=== PATIENT | male | born 1945 | race Caucasian/White ===

== ENCOUNTER 2022-06-08 14:18 | Outpatient (CLI) | payer MEDICARE, BC, SELFPAY ==
[2022-06-09 00:16] LABS: Free T4 Free Thyroxine* 1.43 ng/dL (0.70-1.85)
== END 2022-06-08 14:19 | disposition home or self-care (01) ==
PROVIDERS: PCP Family Medicine; Visit Provider Family Medicine
DX: E03.9 Hypothyroidism, unspecified (principal); E78.2 Mixed hyperlipidemia; E11.9 Type 2 diabetes mellitus without complications; N18.2 Chronic kidney disease, stage 2 (mild); Z12.5 Encounter for screening for malignant neoplasm of prostate
CPT/HCPCS: 80048; 80061; 83520; 84153; 84439; 84443; 84460

== ENCOUNTER 2022-10-13 11:42 | Outpatient (CLI) | payer MEDICARE, BC, SELFPAY ==
[2022-10-13 15:37] LABS: Basophils Absolute Auto 0.03 K/uL (0.00-0.30); Basophils Percent Auto 0.4 % (0.0-3.0); Eosinophils Absolute Auto 0.12 K/uL (0.00-0.50); Eosinophils Percent Auto 1.7 % (0.0-7.0); Hematocrit 36.4 % (37.0-53.0); Hemoglobin* 11.8 gm/dL (13.5-17.5); Immature Granulocytes Abs Auto 0.02 K/uL (0.00-0.30); Immature Granulocytes Pct Auto 0.3 %; Lymphocytes Percent Auto 22.8 % (20-44); Mean Corpuscular HGB Conc 32 gm/dL (32-36); Mean Corpuscular Hemoglobin 30 pg (26-34); Mean Corpuscular Volume 91 fL (80-100); Neutrophils Absolute Auto 4.77 K/uL (1.7-7.0); Neutrophils Percent Auto 67.8 % (42.0-72.0); Platelet Count* 225 K/uL (140-440); RDW Coefficient of Variation % 13.4 % (11.5-15.5); White Blood Count* 7.03 K/uL (4.50-11.00)
[2022-10-13 15:54] LABS: Slide Review Reflex No
[2022-10-13 17:46] LABS: Free T4 Free Thyroxine* 1.37 ng/dL (0.70-1.85)
== END 2022-10-13 11:43 | disposition home or self-care (01) ==
PROVIDERS: PCP Family Medicine; Visit Provider Family Medicine
DX: D50.9 Iron deficiency anemia, unspecified (principal); E03.9 Hypothyroidism, unspecified
CPT/HCPCS: 84439; 84443; 85025

== ENCOUNTER 2023-01-08 09:14 | Outpatient (CLI) | payer MEDICARE, BC, SELFPAY | END 2023-01-08 09:15 | disposition home or self-care (01) | LOC: NFLDREF 01-11 05:53 | PROVIDERS: PCP Family Medicine; Referring Provider Family Medicine; Visit Provider Family Medicine | DX: E03.9 Hypothyroidism, unspecified (principal) | CPT/HCPCS: 84439; 84443 ==

== ENCOUNTER 2023-08-16 09:30 | Outpatient (CLI) | payer MEDICARE, BC, SELFPAY ==
--- OUTSIDE RECORDS SUMMARY | 2023-08-16 09:32 | XMS_ITS | Clinical Summary ---
Author Organization [facility] [facility] [employer] Address [place], [place] [address] Care Team Providers Care Drag Out Man Name Role Phone Alba Alberto NP Primary Care Provider Allergies Active Allergy Reactions Criticality Noted Date Comments Amlodipine Rash 04/16/2008 Chlorthalidone Rash 04/28/2010 Hydralazine Itching 04/07/2010 Medications Medication Sig Dispensed Refills Start Date End Date Status simvastatin (ZOCOR) 80 mg tabletIndications:Pure hypercholesterolemia Take 1 tablet by mouth once daily with evening meal. 90 tablet 3 1 Active NIFEdipine (PROCARDIA XL) 60 mg Extended-Release tablet Take 60 mg by mouth once daily before a meal. Active losartan-hydrochlorothiaz sammi (HYZAAR) 100-25 mg tablet Take 1 Tablet by mouth once daily. Active Terazosin HCl 10 mg capsule Take 10 mg by mouth once daily with evening meal. Active glimepiride (AMARYL) 4 mg tablet Take 8 mg by mouth once daily with a meal. Active cloNIDine HCL (CATAPRES) 0.3 mg tablet Take 0.3 mg by mouth 2 times daily. Active labetaloL (TRANDATE) 300 mg tablet Take 600 mg by mouth 2 times daily. Active metFORMIN (GLUCOPHAGE XR) 500 mg Extended-Release tablet Take 2,000 mg by mouth once daily with a meal. Active Lantus Solostar U-100 Insulin 100 unit/mL (3 mL) pen Inject 22 units subcutaneous before bedtime. Product desired: LANTUS SOLOSTAR Active insulin aspart, U-100, (NOVOLOG FLEXPEN) 100 unit/mL (3 mL) pen Inject 14 units subcutaneous once daily with lunch. Active semaglutide (Ozempic) 1 mg/dose (2 mg/1.5 mL) pen Inject 1 mg subcutaneous once weekly. Active cetirizine (ZYRTEC) 10 mg tablet Take 10 mg by mouth 2 times daily. Active ferrous sulfate, 65 mg elemental, tablet Take 325 mg by mouth once daily. Active famotidine (PEPCID) 20 mg tabletIndications:Gastroe sophageal reflux disease, unspecified whether esophagitis present Take 1 Tablet (20 mg) by mouth two times daily. 30 Tablet 2 Active sucralfate (CARAFATE) 1 gram tabletIndications:Gastroe sophageal reflux disease, unspecified whether esophagitis present Take 1 Tablet (1 g) by mouth four times daily before meals and at bedtime. 60 Tablet 2 Active pantoprazole (PROTONIX) 20 mg tabletIndications:Gastroe sophageal reflux disease, unspecified whether esophagitis present Take 1 Tablet (20 mg) by mouth once daily. 15 Tablet 2 Active Active Problems Problem Noted Date Diagnosed Date Lactic acidosis 06/30/2021 Acute cystitis without hematuria 06/30/2021 FAISAL (obstructive sleep apnea) 06/30/2021 Other specified anemias 06/20/2021 Thyroid function study abnormality 06/20/2021 Personal history of other malignant neoplasm of skin 08/04/2018 Type 2 diabetes mellitus 03/21/2015 Melanoma 08/02/2013 Melanoma 04/10/2013 Hypertensive kidney disease, stage II 01/07/2012 Hyperlipidemia 01/07/2012 Personal history of colonic polyps 04/02/2010 Overview: Colonoscopy 03/2010 polyps repeat in 5 years Routine general medical exam ination at a health care facility 03/10/2010 Abnormal stress test 11/27/2009 Overview: Abnormal nucl stress test 03/2008; then normal Angiogram at [facility] 11/27/2009 Skin ulcer 11/27/2009 Overview: Below naso labial fold left 11/27/2009 Impaired fasting glucose 04/16/2008 Morbid obesity 01/03/2008 Unspecified sleep apnea 06/12/2006 Unspecified essential hypertension 06/12/2006 Other malaise and fatigue 06/12/2006 Displacement of intervertebr al disc, site unspecified, without myelopathy 06/12/2006 Pure hypercholesterolemia 06/12/2006 Melanoma of back Immunizations Name Administration Dates Next Due Influenza, IIV3 (Age >=3 years) 11/27/2009,12/17,02/11/2007,01/22/2005 Td (Age >=7 Years) 02/27/2003 Zoster (Zostavax-ZVL, live) 04/07/2010 Family History Medical History Relation Name Comments Heart Disease Brother Aidan Heart Disease Father Hollis Diabetes Mother Caryn took pills, not insulin Hypertension Mother Caryn Heart Disease Other Jules [place] nephew CAD s/ p PCI age 53 Cancer Sister 1 Katherine ALL OVER Anesthesia Problem No Family History Blood Disease No Family History Relation Name Status Comments Brother Aidan (Age 59) CAD Father Hollis (Age 66) CAD Mother Caryn (Age 83) HTN, DM Other Jules [place]ton Sister 1 Katherine (Age 60) Sister 2 Trinity Alive Sister 3 Tiki Alive Sister 4 Migdalia Alive Social History Tobacco Use Types Packs/Day Years Used Date Smoking Tobacco: Former Smokeless Tobacco: Never Alcohol Use Standard Drinks/Week Comments No 0 (1 standard drink = 0.6 oz pur e alcohol) Social Connections Answer Date Recorded Frequency of Communication with Friends and Fami ly Not on file 05/18/2022 Sex and Gender Information Value Date Recorded Sex Assigned at Not on file Gender Identity Not on file Sexual Orientation Not on file Obstetrics History Last Filed Vital Signs Vital Sign Reading Time Taken Comments Blood Pressure 135/78 10/09/2021 9:30 AM CDT Pulse 71 10/09/2021 10:30 AM CDT Temperature 36.6 ??C (97.9 ??F) 10/09/2021 9:27 AM CD T Respiratory Rate 16 10/09/2021 9:27 AM CDT Oxygen Saturation 96% 10/09/2021 10:30 AM CDT Inhaled Oxygen Concentration - - Weight 146 kg (321 lb 14.4 oz) 10/09/2021 9:27 A M CDT Height 177.8 cm (5' 10) 10/09/2021 9:27 AM CDT Body Mass Index 46.19 10/09/2021 9:27 AM CDT Plan of Treatment Health Maintenance Due Date Last Done Comments Tdap 1956 Depression screening for age 12+ 1958 Hepatitis C screening for ag e 18-79 1964 Zoster (shingles) series for age 50+ (2 of 3) 06/02/2010 04/07/2010 Medicare Wellness for age 65+ 11/17/2011 Pneumococcal series for age 65+ (1 of 1 - PCV) 11/17/2011 Tetanus booster 02/27/2013 02/27/2003 BMI (ht and wt on same day) for age 18+ 07/08/2018 07/08/2017 COVID-19 vaccine series ( season) 2022 07/03/2021, 11/07/2020, 04/20/2020, Additional history exists Influenza for age 65+ 10/10/2023 11/27/2009 , 12/17/2008, 02/11/2007, Additional history exists Medical Devices Implanted Type Area Make Ready Mechanic Device Identifier Shelf Expiration Date Model / Serial / Lot Mesh Ventral 1.7in Ventralex St W/Strap - [id number] Implanted:Qty: 1 on 03/04/2016 by Vic Oliveira MD at [facility] N/A: Abdomen [employer] 12/05/2017 [id number] / / [id number] Advance Directives Documents on File Type Date Recorded Patient Certified Driver Examiner Expl anation Healthcare Directive 06/28/2021 022 * Full Code (Latest Code Status on File) Date Activated Date Inactivated Comments 07/15/2021 11:02 AM 07/15/2021 4:48 PM Question Answer Comments Code Status Discussion: Reviewed Preferences * Full Code Date Activated Date Inactivated Comments 06/27/2021 6:10 PM 06/30/2021 5:20 PM Question Answer Comments Code Status Discussion: Reviewed Preferences * Full Code Date Activated Date Inactivated Comments 06/20/2021 5:34 PM 06/20/2021 9:50 PM Question Answer Comments Code Status Discussion: Unable to Assess Preferences, Provider to review later * Full Code Date Activated Date Inactivated Comments 03/04/2016 12:53 PM 03/04/2016 5:46 PM * Full Code Date Activated Date Inactivated Comments 03/04/2016 9:39 AM 03/04/2016 12:53 PM Care Teams Drag Out Man Relationship Specialty Start Date End Date Alba Alberto NP PCP - General Nurse Practitioner 07/08/19
--- OUTSIDE RECORDS SUMMARY | 2023-08-16 09:32 | XMS_ITS | Clinical Summary ---
Author Organization [facility] Address [address] [place] [address] Care Team Providers Care Air Analyst Name Role Phone Elsewhere, Pcp Primary Care Provider Unavailabl e Source Comments Patient records contain information from all sites at [facility]. For routine questions regarding patient records, call [phone] during business hours, M-F 8:00 AM - 5:00 PM Central Time. Record requests for emergency care only can be directed to [phone] at any time.[facility] Allergies Active Allergy Reactions Criticality Noted Date Comments Amlodipine Rash High 04/16/2008 Chlorthalidone Rash 04/28/2010 Hydralazine Itching 04/07/2010 Medications Medication Sig Dispensed Refills Start Date End Date Status cetirizine (ZyrTEC) 10 mg tablet Take 1 tablet by mouth 2 (two) times a day. 07/12/2013 Active blood-glucose meter miscIndications:Nicole betes Mellitus Type 2 Hyperglycemia (HCC) Test as directed for diabetes control. 1 each 06/16/2018 Active UNABLE TO FIND Walzyr 10 mg AM and PM patient reported Active cloNIDine (CATAPRES) 0.3 mg tabletIndications:H ypertension Essential Primary Take 1 tablet (0.3 mg total) by mouth 2 (two) times a day. 180 tablet 3 06/17/2021 Active ferrous sulfate 325 mg (65 mg iron) tablet Take 325 mg by mouth daily. Active erythromycin (ROMYCIN) 5 mg/gram (0.5 %) ophthalmic ointment 07/17/2021 Active labetaloL (NORMODYNE) 300 mg tabletIndications:H ypertension Essential Primary TAKE 2 TABLETS EVERY 12 HOURS 360 tablet 3 08/20/2021 Active Lantus Solostar U-100 Insulin 100 unit/mL (3 mL) injectionIndication s:Fdc Use Of Insulin Active (HCC),Diabetes Mellitus Type 2 Hyperglycemia (HCC) INJECT 22 UNITS SUBCUTANEOUSLY AT BEDTIME DIRECTED 21 mL 3 10/09/2021 Active simvastatin (ZOCOR) 80 mg tabletIndications:H yperlipidemia TAKE 1 TABLET AT BEDTIME 90 tablet 3 11/24/2021 Active losartan-hydroCHLOR Othiazide (HYZAAR) 100-25 mg per tabletIndications:H ypertension Essential Primary TAKE 1 TABLET EVERY DAY 90 tablet 3 11/24/2021 Active insulin aspart U-100 (NovoLOG Flexpen U-100 Insulin) 100 unit/mL (3 mL) injectionIndication s:Diabetes Mellitus Type 2 Hyperglycemia (HCC),Guide Travel Use Of Insulin Active ([facility]) Take 14 units before lunch and 5 units before dinner daily. 15 mL 1 12/08/2021 Active FreeStyle Flaca 2 Sensor kitIndications:Diab etes Mellitus Type 2 Hyperglycemia (HCC) CHANGE SENSOR EVERY 14 DAYS 1 each 3 12/13/2021 Active flash glucose scanning reader (FreeStyle Flaca 2 [place]) miscIndications:Nicole betes Mellitus Type 2 Hyperglycemia (HCC) 1 kit daily. 1 each 12/23/2021 Active Droplet Pen Needle 31 gauge x 5/16 needleIndications:L corbin Term Use Of Insulin Active (HCC),Diabetes Mellitus Type 2 Hyperglycemia (HCC) USE TWICE DAILY 200 each 11 01/06/2022 Active terazosin (HYTRIN) 10 mg capsuleIndications: Hypertension Essential Primary Take 1 capsule (10 mg total) by mouth at bedtime. 90 capsule 3 03/04/2022 Active NIFEdipine XL (PROCARDIA XL) 60 mg 24 hr tabletIndications:H ypertension Essential Primary Take 1 tablet (60 mg total) by mouth daily. 90 tablet 3 03/05/2022 Active metFORMIN XR (GLUCOPHAGE-XR) 500 mg 24 hr tabletIndications:D iabetes Mellitus Type 2 Hyperglycemia (HCC) Take 4 tablets (2,000 mg total) by mouth daily with breakfast. 360 tablet 3 03/05/2022 Active glimepiride (AMARYL) 4 mg tabletIndications:D iabetes Mellitus Type 2 Hyperglycemia (HCC) Take 2 tablets (8 mg total) by mouth daily with breakfast. 180 tablet 3 03/05/2022 Active levothyroxine (SYNTHROID, LEVOTHROID) 100 mcg tablet Take 1 tablet (100 mcg total) by mouth daily. 90 tablet 3 03/09/2022 Active semaglutide (Ozempic) 1 mg/dose (4 mg/3 mL) injectionIndication s:Diabetes Mellitus Type 2 Hyperglycemia (HCC) Inject 1 mg under the skin every 7 (seven) days. 3 mL 3 05/19/2022 Active Additional Information Patient not taking.Reported on 03/02/2023 triamcinolone (KENALOG) 0.1 % cream Apply sparingly to rash on leg twice daily for 2 weeks, stop for 1 week, then resume if needed 60 g 12/17/2022 Active mometasone (ELOCON) 0.1 % ointment Apply sparingly to rash on legs once daily for 2 weeks, stop for 1 week, then resume for 2 weeks and stop. 45 g 03/02/2023 Active Additional Information Patient not taking.Reported on 06/14/2023 spironolactone (ALDACTONE) 50 mg tablet Take 50 mg by mouth every morning. 04/11/2023 Active Hospital, Clinic, or Other Facility Administered Medication Ordered Dose Route Frequency Start Date End Date Status lidocaine-EPINEPHrine 1%-1:200,000 injection 2-50 mL (XYLOCAINE W/EPI)Indications:Nevus Atypical 2 - 50 mL Ifil As needed 04/12/2020 Active lidocaine-EPINEPHrine 1%-1:200,000 injection 2-50 mL (XYLOCAINE W/EPI)Indications:Malignant Neoplasm Of Nose Basal Cell 2 - 50 mL inj As needed 03/09/2023 Active AVFhcpxxgxa-arhchwtda-WBZIMBM rine 0.25%-1%-1:200,000 injection 2-25 mLIndications:Malignant Neoplasm Of Nose Basal Cell 2 - 25 mL inj As needed 03/09/2023 Active lidocaine-sodium bicarbonate (buffered) 0.9%-8.4% injection 0-10 mL 0 - 10 mL Ifil Once 03/09/2023 Active Active Problems Problem Noted Date Diagnosed Date Hypothyroidism 12/08/2021 Abnormal Thyroid Function Test 06/20/2021 Fdc Use Of Insulin Active 03/25/2020 Morbid Obesity Body Mass Index 45.0-49.9 Adult 0 03/25/2020 Cancer Skin Squamous Cell Personal History 08/04 Polyp Colon Adenomatous Personal History 019 Apnea Sleep Obstructive 04/28/2017 Overview: Uses CPAP. Allergy Seasonal 02/24/2017 Diabetes Mellitus Type 2 Hyperglycemia 6 Keratosis Actinic 08/22/2014 Hypertension And Chronic Kidney Disease Stage 2 01/07/2012 Hyperlipidemia 01/07/2012 Resolved Problems Problem Noted Date Diagnosed Date Resolved Date Other Specified Anemias 06/20/2021 06/0 02/2021 Polyp Colon Adenomatous 05/06/201507/10 Squamous Cell Carcinoma In Situ 01/03/2014 08/04/2018 Melanoma Trunk 05/06/2012 06/16/2018 Overview: Malignant Melanoma of Skin of Trunk, Except Scrotum back Abnormal Stress Test 11/27/2009 019 Overview: Overview: Abnormal nucl stress test 03/2008; then normal Angiogram at [facility] 11/27/2009 Impaired Fasting Glucose 04/16/2008 Encounters Date Type Department Care Team Description 06/14/2023 10:00 AM CDT Office Visit Department of Dermatology in [address] [phone] Ravin Staton M.D. Nevi Multiple (Primary Dx); Keratosis Seborrheic; Melanoma Personal History; Stasis Dermatitis Lower Extremity Bilateral; Keratosis Actinic Discharge Disposition: Home or Self Care from Last 3 Months Immunizations Name Administration Dates Next Due HZV (ZOSTAVAX) 04/07/2010 Influenza TIV (IM) 12/17/2008,02/11/2007 Influenza high dose QV(65 ye ars or older) (PF) 12/08/2021,12/23/2020,12/22/2019 Influenza, Seasonal, Injectable 12/10/19 12,11/27/2009,12/17/2008,2007,01/22/2005 Influenza, Unspecified 10/30/2015,2014,12/11/2013,2012,12/10/2011 PCV13 12/05/2014 PPSV23 12/10/2011 RZV (SHINGRIX) 07/03/2021(Deferred: Patient Ref used) SARS-COV-2 (COVID-19) - PFIZ ER (Discontinued)(12 years or older) 04/20/2020,03/30/2020 SARS-COV-2 (COVID-19) - PFIZ ER BIVALENT TS(Discontinued)(12 YEARS OR OLDER) 12/08/2021 SARS-COV-2 (COVID-19) - PFIZ ER TS(Discontinued)(12 years or older) 07/03/2021 Td (Adult), adsorbed 02/27/2003 Tdap 06/16/2018 influenza high dose (65 year s or older) (PF) 12/15/2018,12/08/2017,01/04/2017,2015,12/05/2014 Family History Medical History Relation Name Comments Coronary artery disease Brother Aidan Mead age 59 Obesity Brother Aidan Mead at age 59 Coronary artery disease Father Hollis Mead age 67 Heart failure Father Hollis Mead Peripheral vascular disease Father Hollis Mead Dementia Mother Caryn Mead age 78 Lung cancer Sister Katherine Lawton age 50--and her son of lung cancer also Ovarian cancer Sister Katherine Lawton 50 Relation Name Status Comments Brother Aidan Mead Father Hollis Mead Mother Caryn Mead Sister Katherine Lawton Social History Tobacco Use Types Packs/Day Years Used Date Smoking Tobacco: Former Cigars Smokeless Tobacco: Never Tobacco Cessation:Counseling Given: Not Answered Comments:SMOKE CIGARS DAILY NOW-- Past usage when i was in my 20's (1967++) quit approx. 10+ years go. Alcohol Use Standard Drinks/Week Comments No 0 (1 standard drink = 0.6 oz pur e alcohol) [facility] Utilities Answer Date Recorded In the past 12 months has e electric, gas, oil, or water company threatened to shut off services in your home? No 04/19/2023 Humiliation, Afraid, Rape, and Kick questionnair e Answer Date Recorded Within the last year, have y ou been afraid of your partner or ex-partner? No 03/02/2022 Within the last year, have y ou been humiliated or emotionally abused in other ways by your partner or ex-partner? No Within the last year, have y ou been kicked, hit, slapped, or otherwise physically hurt by your partner or ex-partner? No 03/02/2022 Within the last year, have y ou been raped or forced to have any kind of sexual activity by your partner or ex-partner? No 03/02/2022 Social Connection and Isolation Panel [NHANES] A nswer Date Recorded In a typical week, how many times do you talk on the phone with family, friends, or neighbors? Twice a week 03/02/2022 How often do you get together with friends or re latives? Once a week 03/02/2022 How often do you attend lutheran or yazidism serv ices? Never 03/02/2022 Do you belong to any clubs o r organizations such as lutheran groups, unions, fraternal or athletic groups, or school groups? No 03/02/2022 How often do you attend meet ings of the clubs or organizations you belong to? Never 03/02/2022 Are you , , di vorced, , never , or living with a partner? 03/02/2022 AUDIT-C Answer Date Recorded Q1: How often do you have a drink containing alc ohol? Monthly or less 03/02/2022 Q2: How many drinks containi ng alcohol do you have on a typical day when you are drinking? 1 or 2 03/02/2022 Q3: How often do you have si x or more drinks on one occasion? Never 03/02/2022 Overall Financial Resource Strain (CARDIA) Answe r Date Recorded How hard is it for you to pa y for the very basics like food, housing, medical care, and heating? Not hard at all 03/02/2022 PHQ-2 Answer Date Recorded PHQ-2 Score 4 03/02/2022 [facility] Occupational Stress Questionnaire Answer Date Recorded Do you feel stress - tense, restless, nervous, or anxious, or unable to sleep at night because your mind is troubled all the time - these days? Not at all 03/02/2022 Exercise Vital Sign Answer Date Recorde d On average, how many days pe r week do you engage in moderate to strenuous exercise (like a brisk walk)? 0 days 04/19/2023 On average, how many minutes do you engage in exercise at this level? 0 min 04/19/2023 Hunger Vital Sign Answer Date Recorded Within the past 12 months, y ou worried that your food would run out before you got the money to buy more. Never true 04/19/19 Within the past 12 months, t he food you bought just didn't last and you didn't have money to get more. Never true 04/19/2023 PRAPARE - Transportation Answer Date Re corded In the past 12 months, has l ack of transportation kept you from medical appointments or from getting medications? No 04/08 In the past 12 months, has l ack of transportation kept you from meetings, work, or from getting things needed for daily living? No 04/19/2023 Depression Answer Date Recor ded PHQ-9 Total Score (max 27) 13 03/02 Nutrition Answer Date Recorded On average, how many serving s of fruits and vegetables do you eat per day (serving size is equal to 1 cup or approximately the size of a tennis ball)? 0-2 04/19/2023 Dental Answer Date Recorded Dental: Regular Dentist Yes 03/02/19 Employment Answer Date Recorded Employment status Retired 04/19/2023 Housing Stability Answer Date Recorded What is your living situation today? I have a [facility] place to live 04/19/2023 Education Answer Date Recorded What is the highest level of school you have completed or the highest degree you have received? 10th grade 08/25/2018 Sex and Gender Information Value Date Recorded Sex Assigned at Male 04/26/2017 2:48 PM CDT Gender Identity Male 04/26/2017 2:48 PM CDT Sexual Orientation Straight 04/26/2017 2: 48 PM CDT Last Filed Vital Signs Vital Sign Reading Time Taken Comments Blood Pressure 109/66 03/09/2023 7:38 AM ASTRONOMY DEPARTMENT CHAIR Pulse 63 03/09/2023 7:38 AM ASTRONOMY DEPARTMENT CHAIR Temperature 36.1 ??C (96.9 ??F) 03/05/2022 9:07 AM CS T Respiratory Rate 18 03/05/2022 9:07 AM ASTRONOMY DEPARTMENT CHAIR Oxygen Saturation 96% 06/17/2021 7:44 AM CDT Inhaled Oxygen Concentration - - Weight 143 kg (315 lb 12.9 oz) 03/05/2022 9:07 A M ASTRONOMY DEPARTMENT CHAIR Height 177 cm (5' 9.69) 03/05/2022 9:07 AM ASTRONOMY DEPARTMENT CHAIR Body Mass Index 45.72 03/05/2022 9:07 AM ASTRONOMY DEPARTMENT CHAIR Plan of Treatment Upcoming Encounters Date Type Department Care Team (Late st Contact Info) Description 12/14/2023 1:30 PM ASTRONOMY DEPARTMENT CHAIR Office Visit Department of Dermatology in [address] [phone] Ravin Staton M.D. [address] [place] [address] Discharge Disposition: Home or Self Care Health Maintenance Due Date Last Done Comments Hepatitis C Screening 1945 Hepatitis B Vaccines (1 of 3 - Risk 3-dose series) 2006 Dilated Eye Exam 08/05/2019 08/04/2018 (Per formed elsewhere), 07/23/2017 Diabetic Office Visit with F oot Exam 05/01/2022 05/01/2021, 03/25/2020, 06/16/2018 Hemoglobin A1C 06/03/2022 03/05/2022, 11/09, 10/23/2021, Additional history exists Creatinine Level (Kidney Fun ction Test) 10/09/2022 10/09/2021, 07/23/2021, 07/09/2021, Additional history exists Potassium Level 10/09/2022 10/09/2021, 07/09, 07/09/2021, Additional history exists Sodium Level 10/09/2022 10/09/2021, 07/09, 07/09/2021, Additional history exists Depression Screening (Annual PHQ-2) 02/08/2023 Fall Risk Screen (Annual) 02/08/2023 Office Visit for Blood Press ure Check / Re-check 03/05/2023 03/05/2022 Thyroid Stimulating Hormone (TSH) test for thyroid function 03/05/2023 03/05/2022, 12/04/2021, 10/23/2021, Additional history exists Urine Albumin 03/05/2023 03/05/2022, 12/09, 12/22/2019, Additional history exists COVID-19 Vaccine ( - 2022-2 4 season) 2023 02/03/2023, 12/08/2021, 07/03/2021, Additional history exists Influenza Vaccine (#1) 2023 , 12/08/2021, 12/23/2020, Additional history exists DTaP,Tdap,and Td Vaccines (2 - Td or Tdap) 06/16/2028 06/16/2018, 02/27/2003 Pneumococcal vaccine (65+ years) Completed 12/06/19 15, 12/10/2011 Abdominal Aortic Aneurysm (A AA) Screen Discontinued 08/18/2018 Cologuard Discontinued 01/01/2020 Colonoscopy Discontinued 07/15/2021, 04/29/2015 Colorectal Cancer Surveillance Discontinued Zoster Vaccines Completed 10/29/2022, 06/09, 04/07/2010 CT Colonography Discontinued Medical Devices Implanted Type Area Die Assembler Device Identifier Shelf Expiration Date Model / Serial / Lot Mesh Or Patch Mesh or Patch Abdomen Procedures Procedure Name Priority Date/Time Associated Diagnosis Comments HEMOGLOBIN A1C, B Routine 03/05/2022 8:4 5 AM ASTRONOMY DEPARTMENT CHAIR Diabetes Mellitus Type 2 Hyperglycemia (HCC) THYROID-STIMULATI NG HORMONE-SENSITIVE (S-TSH) Routine 03/05/2022 8:45 AM ASTRONOMY DEPARTMENT CHAIR Hypothyroidism ALBUMIN, RANDOM, U Routine 03/05/2022 8:41 AM ASTRONOMY DEPARTMENT CHAIR Diabetes Mellitus Type 2 Hyperglycemia (HCC) EXTI BASIC METABOLIC PANEL, S/P Routine 10/09/2021 9:57 AM CDT COLOGUARD Routine 01/01/2020 3:30 PM ASTRONOMY DEPARTMENT CHAIR Screening Cancer Colon CT ABDOMEN PELVIS WITH IV CONTRAST RAD - Routine (most inpatients and all outpatients) 08/18/2018 7:49 PM CDT from Last 3 Months or Most Recently Relevant to Health Maintenance Results * (ABNORMAL) S-TSH (Thyroid-Stimulating Hormone - Sensitive) (03/05/2022 8:45 AM ASTRONOMY DEPARTMENT CHAIR) TSH, Sensitive 5.3(H) 0.3 - 4.2 mIU/L 03/05/2022 4:24 PM ASTRONOMY DEPARTMENT CHAIR AUST Blood (Blood, Venous) 03/05/2022 8:45 AM ASTRONOMY DEPARTMENT CHAIR 03/05/2022 11:09 AM ASTRONOMY DEPARTMENT CHAIR Amadou Diego APRNNRyder., R.N. LAB BL OOD ADD-ON Performing Organization Address City/[facility]/ZIP Co de Phone Number [facility] [address] [place] [address], [facility] AUST [place] [facility] [address] [place] [address] * (ABNORMAL) Hemoglobin A1c (03/05/2022 8:45 AM ASTRONOMY DEPARTMENT CHAIR) Hemoglobin A1c, B 8.6(H) 4.2 - 5.6 % 03/05/2022 12:09 PM ASTRONOMY DEPARTMENT CHAIR OWAT Comment: Hemoglobin A1c values greater than or equal to 6.5 percent are diagnostic for diabetes mellitus. ??Diagnosis should be confirmed by repeat testing. ??In diabetic patients, HbA1c goals should be discussed with healthcare provider. Blood (Blood, Venous) 03/05/2022 8:45 AM ASTRONOMY DEPARTMENT CHAIR 03/05/2022 11:10 AM ASTRONOMY DEPARTMENT CHAIR Moisés Richards M.D. LAB BLO OD ADD-ON [facility] [address] [place] [address], [place] OWAT [facility] [place] [address] [place] [address] * Albumin, Random, Urine (03/05/2022 8:41 AM ASTRONOMY DEPARTMENT CHAIR) Microalbumin <12.0 mg/L 03/05/2022 12:15 PM ASTRONOMY DEPARTMENT CHAIR OWAT Comment:If clinically indica therese, contact the lab for additional testing. Creatinine 172 mg/dL 03/05/2022 12:15 PM ASTRONOMY DEPARTMENT CHAIR OWAT Albumin/Creatinine Ratio <7 <17 mg/g 03/05/2022 12:15 PM ASTRONOMY DEPARTMENT CHAIR OWAT Comment: This ratio may not correspond with the reference range because one or both of the values used to calculate the ratio was above or below the quantification limits. Urine (Urine, Midstream) 03/05/2022 8:41 AM ASTRONOMY DEPARTMENT CHAIR 03/05/2022 11:09 AM ASTRONOMY DEPARTMENT CHAIR Moisés Richards M.D. LAB URI NE ORDERABLES [facility] [address] [place] [address], [facility] OWAT [facility] in [place] [address] [place] [address] * Cologuard (01/01/2020 3:30 PM ASTRONOMY DEPARTMENT CHAIR) Result Negative Not Applicable 01/08/2020 4:25 PM ASTRONOMY DEPARTMENT CHAIR EXLI Comment: A negative result indicates a low likelihood that a colorectal cancer (CRC) or an advanced adenoma (adenomatous polyps with more advanced pre-malignant features) is present. The chance that a person with a negative Cologuard test has a colorectal cancer is less than 1 in 1500 (negative predictive value >99.9%) or has an advanced adenoma is less than 5.3% (negative predictive value 94.7%). These data are based on a prospective cross-sectional screening study of 10,000 individuals at average risk for colorectal cancer who were screened with both Cologuard and colonoscopy. (Jose Roberto Pereira, N Engl J Med 2014;370(14):0195-5134) The normal value (reference range) for this assay is negative. COLOGUARD RE-SCREENING RECOMMENDATION: Periodic routine colorectal cancer screening is an important part of preventive healthcare for asymptomatic persons at average risk for colorectal cancer. Following a negative Cologuard result, the [place] Cancer Society and U.S. Multi-Society Task Force screening guidelines recommend a Cologuard re-screening interval of 3 years. References: [employer] Cancer Society (ACS). Colorectal cancer prevention and early detection. [place], [place]: [place] Cancer Society; [updated 2015Jun 01]. https://www.cancer.org/cancer/gzspm-fsobqi-ymkqiv/detection- diagnosis-staging/acs-recommendations.html. Accessed October 08, 2017; Ascencion DK, Polina LOVE, Link GranadoK, Colorectal Cancer Screening: Recommendations for Physicians and Patients from the U.S. Multi-Society Task Force on Colorectal Cancer Screening, Am J Gastroenterology 2017; 112:0522-8729. TEST TYPE: Composite algorithmic analysis of stool DNA-biomarkers with hemoglobin immunoassay. ??Quantitative values of individual biomarkers are not reportable and are not associated with individual biomarker result reference ranges. PRECAUTIONS AND LIMITATIONS: Cologuard is intended for colorectal cancer screening of adults of either sex, 45 years or older, who are at average-risk for colorectal cancer (CRC). Cologuard has been approved for use by the U.S. FDA. Cologuard may produce a false negative or false positive result. A negative Cologuard test result does not guarantee the absence of CRC or advanced adenoma (pre-cancer). Patients with a negative Cologuard test result should be advised to continue participating in a colorectal cancer screening program. The screening interval for Cologuard is currently recommended at an interval of every 3 years by the [place] Cancer Society and U.S. Multi-Society Task Force. A false positive result occurs when Cologuard produces a positive result, even though a colonoscopy may not find colorectal cancer or precancerous polyps. The performance of Cologuard has been established in a cross sectional study (i.e., single point in time) of average-risk adults aged 50-84. Cologuard performance in patients ages 45 to 49 years was estimated by sub-group analysis of near-age groups. Cologuard performance data in a 10,000 patient pivotal study using colonoscopy as the reference method can be accessed at the following location: www.Gameyola.Energeno/results. Additional description of the Cologuard test process, warnings and precautions can be found at www.cologuardtest.com. Rx only. Stool (Stool) 01/01/2020 3:3 0 PM ASTRONOMY DEPARTMENT CHAIR 01/03/2020 11:10 AM ASTRONOMY DEPARTMENT CHAIR Alba Alberto APRN, C.N.P., R.N. LAB JUAN CARLOS DY FLUIDS AND STOOLS ORDERABLES [facility] [address] [place] [address] EXLI [facility] [address] [facility], [address] [place] [address] from Last 3 Months or Most Recently Relevant to Health Maintenance Care Teams Air Analyst Relationship Specialty Start Date End Date Elsewhere, Pcp PCP - General Internal Medicine 08/18/22
--- OUTSIDE RECORDS SUMMARY | 2023-08-16 09:33 | XMS_ITS ---
Author Organization [facility] Address [address] [place] [address] Care Team Providers Care Debt Collector Name Role Phone Unavailable Unavailable Unavailable Surgery Details Not on file Complications Check Surgery Details section. Procedure Estimated Blood Loss Check Surgery Details section. Procedure Findings Check Surgery Details section. Procedure Specimens Taken Check Surgery Details section.
--- OUTSIDE RECORDS SUMMARY | 2023-08-16 09:33 | XMS_ITS | Encounter Summary ---
Author Organization [facility] Address [address] [place] [address] Care Team Providers Care Vice President Of Customer Service Name Role Phone Elsewhere, Pcp Primary Care Provider Unavailabl e Reason for Referral * Outpatient (Routine) - Authorized Specialty Diagnoses / Procedures Referred By Contac t Referred To Contact Dermatology Ravin Staton M.D. [address] [place] [address] [facility] Region Referral ID Status Reason Start Date Expiration Date V isits Requested Visits Authorized [id number] Authorized 06/14/2023 12/13/2024 1 1 Scheduling Instructions Recheck melanoma exam and recheck stasis dermatitis in 6 months. 30 minutes Reason for Visit * Reason Comments Follow-up Dermatitis * Outpatient (Routine) - Closed Specialty Diagnoses / Procedures Referred By Contac t Referred To Contact Dermatology Ravin Staton M.D. [address] [place] [address] [facility] Region Referral ID Status Reason Start Date Expiration Date Visits Re quested Visits Authorized [id number] Closed 04/26/2023 10/25/2024 1 1 Encounter Details Date Type Department Care Team ([facility] st Contact Info) Description 06/14/2023 10:00 AM CDT Office Visit Department of Dermatology in [address] [phone] Ravin Staton M.D. [address] [place] [address] Nevi Multiple (Primary Dx); Keratosis Seborrheic; Melanoma Personal History; Stasis Dermatitis Lower Extremity Bilateral; Keratosis Actinic Discharge Disposition: Home or Self Care Social History Tobacco Use Types Packs/Day Years Used Date Smoking Tobacco: Former Cigars Smokeless Tobacco: Never Comments:SMOKE CIGARS DAILY NOW-- Past usage when i was in my 20's (1966++) quit approx. 10+ years go. Alcohol Use Standard Drinks/Week Comments No 0 (1 standard drink = 0.6 oz pur e alcohol) [facility] Utilities Answer Date Recorded In the past 12 months has e [employer], gas, oil, or water [employer] threatened to shut off services in your [...] week 03/02/2022 How often do you attend religious or episcopalian serv ices? Never 03/02/2022 Do you belong to any clubs o r organizations such as religious groups, unions, fraternal or athletic groups, or [...] Answer Date Recorded PHQ-2 Score 4 03/02/2022 [facility] - Occupational Stress Questionnaire Answer Date Recorded [...] money to buy more. Never true 04/19/19 24 Within the past 12 months, t he [...] your living situation today? I have a [facility] place to live 04/19/2023 Education Answer Date Recorded What is the highest level of school you have completed or the highest degree you have received? 10th grade 08/25/2018 Sex and Gender Information Value Date Recorded Sex Assigned at Male 04/26/2017 2:48 PM CDT Gender Identity Male 04/26/2017 2:48 PM CDT Sexual Orientation Straight 04/26/2017 2: 48 PM CDT documented as of this encounter Progress Notes * Ravin Staton M.D. - 06/14/2023 10:00 AM CDT SUBJECTIVE CHIEF COMPLAINT / REASON FOR VISIT Recheck dermatitis Melanoma recheck HISTORY OF PRESENT ILLNESS Arnulfo Mead is a pleasant 77 y.o. male who presents for a recheck of dermatitis involving the lower legs (bilaterally) as well as a melanoma recheck. The patient was last seen by me in Dermatology clinic on 04/26/23. He has a history of malignant melanoma involving the left mid-back, Americo level II, Breslow depth 1.5 mm, mitotic rate 2/mm2, without ulceration, status post wide local excision on 04/27/12 at [facility] in [place]. He underwent complete lymph node dissection with a positive lymph node followed by treatment with Leukine therapy for 2 years which was discontinued in 2014. 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j at [facility]. He also has a history of a severely atypical nevus, most recently involving the lumbar spine (superior), status post re-excision on 06/05/[address] Torres at [facility]. He denies a family history for melanoma. He uses sunscreen. He denies any fever, night sweats or unexpected weight loss. Today the patient states that the dermatitis has improved since he last saw us. He applied mometasone cream for two week and the dermatitis improved. He has not used the mometasone since and reports the dermatitis has been stable. He may have used the triamcinolone cream occassionally one day at a time. 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 Torres at [facility] Left mid-paraspinal back: History of severely atypical nevus, status post re- excision on 04/04/[address] Yates at [facility] Left upper lip: History of basal cell carcinoma, removed elsewhere years ago Right medial dorsal hand: History of squamous cell carcinoma in situ, status post re-excision on 01/03/[address]j [address] [facility] History of Type II diabetes mellitus FAMILY HISTORY Negative for melanoma OBJECTIVE PHYSICAL EXAMINATION General: Awake, alert, in no acute distress, and with appropriate affect. Eyes: No scleral injection or icterus. No eyelid abnormalities. Lymph: No lower extremity edema. No lymphadenopathy of head and neck, axilla, popliteal or inguinalareas. No hepatosplenomegaly. Skin: I have examined the scalp, face, neck, chest, abdomen, back, bilateral upper extremities, andbilateral lower extremities. Examination of the left mid back reveals no evidence for recurrence of melanoma. Examination of the lumbar spine (superior) and left mid-paraspinal back reveals no evidence for recurrence of severely atypical nevi x 2. Examination of the left upper lip reveals no evidence for recurrence of basal cell carcinoma. Examination of the right medial dorsal hand reveals no evidence for recurrence of squamous cell carcinoma in situ. Examination of the face, trunk and extremities reveals multiple benign-appearing nevi, lentigines and seborrheic keratoses. Examination of the left forearm reveals actinic keratosis x 3. Examination of the lower legs (bilaterally) reveals some erythema and eczematous changes with some edema extending up 1/3 of the [place]. No evidence for cellulitis. Examination today reveals no suspicious lesions for skin cancer. ASSESSMENT / PLAN #1 Left mid-back: History of malignant melanoma, Americo level II, Breslow depth 1.5 mm, mitotic rate2/mm2, without ulceration, status post wide local excision on 04/27/12 at [facility] in [place], no recurrence A skin cancer screening was performed as described above. No clinical evidence of local recurrence of melanoma today. Due to the history of melanoma, there is an increased risk of additional melanomain the future. Recommended monthly self- skin examinations to evaluate for new, changing, symptomatic, or otherwise worrisome lesions. Signs and symptoms of melanoma and non-melanoma skin cancer discussed. Photoprotection was recommended. Return to Dermatology in 6 months for a full skin exam or immediately if any new or changing lesions are noted. #2 Lumbar spine (superior): History of moderate to severely atypical nevus, status post re-excisionon 06/05/[address] Torres at [facility], no recurrence No clinical evidence of local recurrence today. Recommended monthly self-skin examinations to evaluate for new, changing, symptomatic, or otherwise worrisome lesions. Signs and symptoms of skin cancer discussed. Photoprotection was recommended. Return to Dermatology in 6 months for a full skin examor immediately if any new or changing lesions are noted. #3 Left mid-paraspinal back: History of severely atypical nevus, status post re- excision on 04/04/20by Dr. Yates at [facility], no recurrence No clinical evidence of local recurrence today. Recommended monthly self-skin examinations to evaluate for new, changing, symptomatic, or otherwise worrisome lesions. Signs and symptoms of skin cancer discussed. Photoprotection was recommended. Return to Dermatology in 6 months for a full skin examor immediately if any new or changing lesions are noted. #4 Left forearm: Actinic keratosis x 3 CONSENT Discussed the risks, benefits, alternatives, and the necessity of other members of the healthcare team participating in the procedure. All questions answered and consent given. PROCEDURE INFORMATION Given the precancerous nature of this lesion(s), treatment is medically indicated. After discussionof the risks, benefits and alternatives to treatment with cryotherapy, informed consent was obtained. We treated a total of three lesion(s) with two 10-second freeze-thaw cycles of liquid nitrogen cryotherapy. The patient tolerated the procedure well. Aftercare instructions were provided in writtenand verbal form to the patient. Should any of these lesions recur, the patient should return for biopsy or further evaluation. Follow up in 1-2 months for recheck if these areas do not complete resolve. #5 Lower legs (bilaterally): Stasis dermatitis, improved I discussed with the patient that he still has some active dermatitis involving the lower legs. Recommend he apply 0.1% triamcinolone cream twice daily for two weeks before discontinuing. He has sometriamcinolone cream at home and does not need a refill at this time. He understands and is in agreement with this plan. Follow up in 6 months for a recheck of the dermatitis. #6 Face, trunk and extremities: Multiple nevi and lentigines The ABCDE criteria for melanoma was reviewed with the patient. None of the patient's nevi reach theclinical threshold for biopsy. I recommend continued sun protection, self-skin examinations, and observation. Should any of the patient's nevi change in size, color, texture, or shape or develop symptoms such as itching or bleeding, I recommend an immediate return visit for reassessment. #7 Face, trunk and extremities: Seborrheic keratosis The benign nature of the skin lesion(s) was discussed with the patient. No treatment is required. Irecommend continued observation. Should this lesion change in size, color, texture, or shape or develop symptoms such as itching or bleeding, I recommend an immediate return visit for reassessment. #8 Left upper lip: History of basal cell carcinoma, removed elsewhere years ago, no recurrence No clinical evidence of local recurrence today. Recommended monthly self-skin examinations to evaluate for new, changing, symptomatic, or otherwise worrisome lesions. Signs and symptoms of skin cancer discussed. Photoprotection was recommended. Return to Dermatology in 6 months for a full skin examor immediately if any new or changing lesions are noted. #9 Right medial dorsal hand: History of squamous cell carcinoma in situ, status post re-excision on01/03/[address] [facility] No clinical evidence of local recurrence today. Recommended monthly self-skin examinations to evaluate for new, changing, symptomatic, or otherwise worrisome lesions. Signs and symptoms of skin cancer discussed. Photoprotection was recommended. Return to Dermatology in 6 months for a full skin examor immediately if any new or changing lesions are noted. PATIENT EDUCATION: Ready to learn. No apparent learning barriers were identified. Learning preferences include listening. Explained diagnosis and treatment plan; patient/guardian of patient expressed understanding of the content. By signing my name below, I, Mojgan Kumar, attest that this documentation has been prepared underthe direction and in the presence of Ravin Staton M.D. Electronically Signed: fred Smith. 06/14/2023. 10:12 AM CDT. I, Ravin Staton M.D., personally performed the services described in this documentation. All medical record entries made by the scribe were at my direction and in my presence. I have reviewed the chart and discharge instructions (if applicable) and agree that the record reflects my personal performance and is accurate and complete. Ravin Staton M.D. Scribed for Ravin Staton M.D. by Mojgan Kumar, on 06/14/2023, 10:33 AM CDT. documented in this encounter Plan of Treatment Upcoming Encounters Date Type Department Care Team (Late st Contact Info) Description 12/14/2023 1:30 PM [employer] Office Visit Department of Dermatology in [address] [phone] Ravin Staton M.D. [address] [place] [phone] Discharge Disposition: Home or Self Care Scheduled Referrals Name Type Priority Associated Diagnoses Order Schedule Dermatology office visit (clinic) Outpatient Referral Routine Expected: 12/15/2023 (Approximate), Expires: 09/13/2024 documented as of this encounter Visit Diagnoses Diagnosis Nevi Multiple- Primary Keratosis Seborrheic Melanoma Personal History Stasis Dermatitis Lower Extremity Bilateral Keratosis Actinic documented in this encounter Additional Health Concerns Assessment Noted Time PHQ-9 Depression Total Score: 13 023 10:03 AM [employer] documented as of this encounter Care Teams Vice President Of Customer Service Relationship Specialty Start Date End Date Elsewhere, Pcp PCP - General Internal Medicine 08/18/22 documented as of this encounter
--- OUTSIDE RECORDS SUMMARY | 2023-08-16 09:33 | XMS_ITS | Referral Summary ---
Author Organization [facility] Address [address] [place] [address] Care Team Providers Care Lab Nurse Name Role Phone Elsewhere, Pcp Primary Care Provider Unavailabl e Source Comments Patient records contain information from all sites at [facility]. For routine questions regarding patient records, call [phone] during business hours, M-F 8:00 AM - 5:00 PM Central Time. Record requests for emergency care only can be directed to [phone] at any time.[facility] Encounters Date Type Department Care Team Description 06/14/2023 10:00 AM CDT Office Visit Department of Dermatology in [address] [phone] Ravin Staton M.D. Nevi Multiple (Primary Dx); Keratosis Seborrheic; Melanoma Personal History; Stasis Dermatitis Lower Extremity Bilateral; Keratosis Actinic Discharge Disposition: Home or Self Care from Last 3 Months Allergies Active Allergy Reactions Criticality Noted Date [...] U-100 Insulin 100 unit/mL (3 mL) injectionIndication s:Chemical Worker Use Of Insulin Active (HCC),Diabetes Mellitus Type [...] mL) injectionIndication s:Diabetes Mellitus Type 2 Hyperglycemia (HCC),Senior Living Use Of Insulin Active (HCC) Take 14 units before lunch and 5 units before dinner daily. 15 mL 1 12/08/2021 Active FreeStyle Flaca 2 Sensor kitIndications:Diab etes Mellitus Type 2 Hyperglycemia (HCC) CHANGE SENSOR EVERY 14 DAYS 1 each 3 12/13/2021 Active flash glucose scanning reader (FreeStyle Flaca 2 [place]) miscIndications:Nicole betes Mellitus Type 2 Hyperglycemia (HCC) [...] 50 mL inj As needed 03/09/2023 Active IZMuizazjls-twetrctzs-DFDHCQW rine 0.25%-1%-1:200,000 injection 2-25 mLIndications:Malignant Neoplasm Of Nose Basal Cell 2 - 25 mL inj As needed 03/09/2023 Active lidocaine-sodium bicarbonate (buffered) 0.9%-8.4% injection 0-10 mL 0 - 10 mL Ifil Once 03/09/2023 Active Active Problems Problem Noted Date Diagnosed Date Hypothyroidism 12/08/2021 Abnormal Thyroid Function Test 06/20/2021 Senior Living Use Of Insulin Active 03/25/2020 Morbid Obesity [...] stress test 03/2008; then normal Angiogram at [facility] 11/27/2009 Impaired Fasting Glucose 04/16/2008 Immunizations Name Administration Dates Next Due HZV [...] (65 year s or older) (PF) 12/15/2018,12/08/2017,01/04/2017,2015,12/05/2014 Social History Tobacco Use Types Packs/Day Years Used Date Smoking Tobacco: Former Cigars Smokeless Tobacco: Never Tobacco Cessation:Counseling Given: Not Answered Comments:SMOKE CIGARS DAILY NOW-- Past usage when i was in my 20's (1967++) quit approx. 10+ years go. Alcohol Use Standard Drinks/Week Comments No 0 (1 standard drink = 0.6 oz pur e alcohol) [facility] Utilities Answer Date Recorded In the past 12 months has [facility] [employer], oil, or water [email or web address] threatened to shut off services in your [...] week 03/02/2022 How often do you attend hindu or gnosticism serv ices? Never 03/02/2022 Do you belong to any clubs o r organizations such as hindu groups, unions, fraternal or athletic groups, or [...] Answer Date Recorded PHQ-2 Score 4 03/02/2022 [facility] - Occupational Stress Questionnaire Answer Date [...] your living situation today? I have a [facility] place to live 04/19/2023 Education Answer [...] Comments Blood Pressure 109/66 03/09/2023 7:38 AM [facility] Pulse 63 03/09/2023 7:38 AM [facility] Temperature 36.1 ??C (96.9 ??F) 03/05/2022 9:07 AM CS T Respiratory Rate 18 03/05/2022 9:07 AM [facility] Oxygen Saturation 96% 06/17/2021 7:44 AM CDT Inhaled Oxygen Concentration - - Weight 143 kg (315 lb 12.9 oz) 03/05/2022 9:07 A M [facility] Height 177 cm (5' 9.69) 03/05/2022 9:07 AM [facility] Body Mass Index 45.72 03/05/2022 9:07 AM [facility] Plan of Treatment Upcoming Encounters Date Type Department Care Team (Late st Contact Info) Description 12/14/2023 1:30 PM [facility] Office Visit Department of Dermatology in [address] [phone] Ravin Staton M.D. [address] [place] [address] Discharge Disposition: Home or Self Care Medical Devices Implanted Type Area Complaint Specialist Device Identifier Shelf Expiration Date Model / Serial / Lot Mesh Or Patch Mesh or Patch Abdomen Procedures Procedure Name Priority Date/Time Associated Diagnosis Comments HEMOGLOBIN A1C, B Routine 03/05/2022 8:4 5 AM [facility] Diabetes Mellitus Type 2 Hyperglycemia (HCC) THYROID-STIMULATI NG HORMONE-SENSITIVE (S-TSH) Routine 03/05/2022 8:45 AM [facility] Hypothyroidism ALBUMIN, RANDOM, U Routine 03/05/2022 8:41 AM [facility] Diabetes Mellitus Type 2 Hyperglycemia (HCC) EXTI BASIC METABOLIC PANEL, S/P Routine 10/09/2021 9:57 AM CDT COLOGUARD Routine 01/01/2020 3:30 PM [facility] OF [facility] Screening Cancer Colon CT ABDOMEN PELVIS WITH IV CONTRAST RAD - Routine (most inpatients and all outpatients) 08/18/2018 7:49 PM CDT from Last 3 Months or Most Recently Relevant to Health Maintenance Results * (ABNORMAL) S-TSH (Thyroid-Stimulating Hormone - Sensitive) (03/05/2022 8:45 AM [facility]) TSH, Sensitive 5.3(H) 0.3 - 4.2 mIU/L 03/05/2022 4:24 PM [facility] AUST Blood (Blood, Venous) 03/05/2022 8:45 AM [facility] 03/05/2022 11:09 AM MA[facility] OF HOSPITAL Alba Alberto APRN, C.N.P., R.N. LAB BL OOD ADD-ON Performing Organization Address [facility] Co de Phone Number [facility] [address] [place] [address], [place] [facility] [address] [place] [address] * (ABNORMAL) Hemoglobin A1c (03/05/2022 8:45 AM MANA[facility] OF [facility]) Hemoglobin A1c, B 8.6(H) 4.2 - 5.6 % 03/05/2022 12:09 PM MA[facility] OWAT Comment: Hemoglobin A1c values greater than or equal to 6.5 percent are diagnostic for diabetes mellitus. ??Diagnosis should be confirmed by repeat testing. ??In diabetic patients, HbA1c goals should be discussed with healthcare provider. Blood (Blood, Venous) 03/05/2022 8:45 AM [facility] 03/05/2022 11:10 AM MANA[facility] OF HOSPITAL Moisés Richards M.D. LAB BLO OD ADD-ON Performing Organization Address [facility] Co de Phone Number [facility] [address] [place] [address], [place] [facility] [facility] [place] [address] [place] [address] * Albumin, Random, Urine (03/05/2022 8:41 AM MANA[facility] OF [facility]ITAL) Microalbumin <12.0 mg/L 03/05/2022 12:15 PM [facility] Comment:If clinically indica therese, contact the lab for additional testing. Creatinine 172 mg/dL 03/05/2022 12:15 PM [facility] Albumin/Creatinine Ratio <7 <17 mg/g 03/05/2022 12:15 PM [facility] Comment: This ratio may not correspond with the reference range because one or both of the values used to calculate the ratio was above or below the quantification limits. Urine (Urine, Midstream) 03/05/2022 8:41 AM [facility] 03/05/2022 11:09 AM MANA[facility] OF HOSPITAL Moisés Richards M.D. LAB URI NE ORDERABLES [facility] [address] [place] [address], [place] [facility] [place] [address] [place] [address] * Cologuard (01/01/2020 3:30 PM MA[facility]) Result Negative Not Applicable 01/08/2020 4:25 PM MANA[facility] EXLI Comment: A negative result indicates a [...] with both Cologuard and colonoscopy. (Jose Roberto Cuadra. et al, N Engl J Med 2014;370(14):7208-7450) The normal value (reference range) for this assay is negative. COLOGUARD RE-SCREENING RECOMMENDATION: Periodic routine colorectal cancer screening is an important part of preventive healthcare for asymptomatic persons at average risk for colorectal cancer. Following a negative Cologuard result, the [place] [employer] Society and U.S. Multi-Society Task Force screening guidelines recommend a Cologuard re-screening interval of 3 years. References: [place] [employer] Society (ACS). Colorectal cancer prevention and early detection. [place], [place]: [place] [employer]; [updated 2015Jun 01]. https://www.cancer.org/cancer/qtnkj-hrcoba-eikxqp/detection- diagnosis-staging/acs-recommendations.html. Accessed October 08, 2017; [employer] FLANAGAN, Polina LOVE, Link LOOMIS, Colorectal Cancer Screening: Recommendations for Physicians and Patients from the U.S. Multi-Society Task Force on Colorectal Cancer Screening, Am J Gastroenterology 2017; 112:5320-0410. TEST TYPE: Composite algorithmic analysis of stool [...] interval of every 3 years by the [place] [employer] Society and U.S. Multi-Society Task Force. [...] can be accessed at the following location: www.[employer]/results. Additional description of the Cologuard test process, warnings and precautions can be found at www.cologuardtest.com. Rx only. Stool (Stool) 01/01/2020 3:3 0 PM [facility] 01/03/2020 11:10 AM MANAGER OF HOSPITAL Zeina Diego APRN.N.P., R.N. LAB JUAN CARLOS DY FLUIDS AND STOOLS ORDERABLES [facility] [address] [place] [phone] EXLI [employer] [address] [place] [address], [address] [place] [address] from Last 3 Months or Most Recently Relevant to Health Maintenance Care Teams Lab Nurse Relationship Specialty Start Date End Date Elsewhere, Pcp PCP - General Internal Medicine 08/18/22
--- OUTSIDE RECORDS SUMMARY | 2023-08-16 09:33 | XMS_ITS | Encounter Summary ---
Author Organization [facility] [place] Address [address] [place] [address] Care Team Providers Care Engineering Specialist Technician Name Role Phone Moisés Pena M.D. Primary Care [facility] Reason for Referral * Outpatient (Routine) - Closed Specialty Diagnoses / Procedures Referred By Christian day Referred To Contact Diagnoses Nodule Thyroid Procedures US Thyroid Fine Needle Aspiration with Imaging Guidance Racquel Singer M.D. [address] [place] [address] [facility] Region Referral ID Status Reason Start Date Expiration Date Visits Re quested Visits Authorized [id number] Closed 08/14/2021 08/14/2022 1 1 Reason for Visit * Outpatient (Routine) - Closed Specialty Diagnoses / Procedures Referred By Christian day Referred To Contact Diagnoses Nodule Thyroid Procedures US Thyroid Fine Needle Aspiration with Imaging Guidance Racquel Singer M.D. [address] [place] [address] [facility] Region Referral ID Status Reason Start Date Expiration Date Visits Re quested Visits Authorized [id number] Closed 08/14/2021 08/14/2022 1 1 Encounter Details Date Type Department Care Team (Late st Contact Info) Description 09/02/2021 10:52 AM CDT Hospital Encounter Department of Radiology in [place], [place] [address] [place] [phone] Racquel Singer M.D. [address] [place] [phone] Nodule Thyroid Social History Tobacco Use Types Packs/Day Years Used Date Smoking Tobacco: Former Cigars Smokeless Tobacco: Never Comments:SMOKE CIGARS DAILY NOW-- Past usage when i was in my 20's (1966++) quit approx. 10+ years go. Alcohol Use Standard Drinks/Week Comments No 0 (1 standard drink = 0.6 oz pur e alcohol) [facility] Utilities Answer Date Recorded In the past 12 months has e [employer], gas, oil, or water [employer] threatened to shut off services in your [...] week 03/02/2022 How often do you attend voodoo or bahai serv ices? Never 03/02/2022 Do you belong to any clubs o r organizations such as voodoo groups, unions, fraternal or athletic groups, or [...] Answer Date Recorded PHQ-2 Score 4 03/02/2022 [facility] - Occupational Stress Questionnaire Answer Date [...] situation today? I have a [facility] place to live 04/19/2023 Education Answer [...] PM CDT documented as of this encounter Plan of Treatment Upcoming Encounters Date Type Department Care Team (Late st Contact Info) Description 12/14/2023 1:30 PM VOIP NETWORK ENGINEER Office Visit Department of Dermatology in [address] [phone] Ravin Staton M.D. [address] [place] [phone] Discharge Disposition: Home or Self Care documented as of this encounter Procedures Procedure Name Priority Date/Time Associated Diagnosis Comments US THYROID FINE NEEDLE ASPIRATION WITH IMAGING GUIDANCE RAD - Routine (most inpatients and all outpatients) 09/02/2021 11:33 AM CDT Nodule Thyroid documented in this encounter Results * US Thyroid Fine Needle Aspiration with Imaging Guidance (09/02/2021 11:33 AM CDT) Narrative [id number] - 09/03/2021 4:51 PM CDT This exam does not require a radiologist review or interpretation. Please refer to the patient's medical record on this date for clinical details. Racquel WOODARD [facility] Organization Address City/State/ZIP Co de Phone Number [phone] [facility] documented in this encounter Visit Diagnoses Diagnosis Nodule Thyroid documented in this encounter Additional Health Concerns Infection Onset Date Last Indicated Resolved Time COVID19 02/04/2022 02/04/2022 02/24/2022 4:45 AM VOIP NETWORK ENGINEER Assessment Noted Time PHQ-9 Depression Total Score: 4 02/19/19 9:22 AM VOIP NETWORK ENGINEER documented as of this encounter Care Teams Engineering Specialist Technician Relationship Specialty Start Date End Date Moisés Pena M.B.B.S., M.D. [address] [place] [phone] PCP - General Family Medicine 07/03/21 08/17/22 documented as of this encounter
== END 2023-08-16 09:31 | disposition home or self-care (01) ==
PROVIDERS: PCP Family Medicine; Visit Provider Family Medicine
DX: E78.2 Mixed hyperlipidemia (principal); D50.9 Iron deficiency anemia, unspecified; I10 Essential (primary) hypertension; E03.9 Hypothyroidism, unspecified
CPT/HCPCS: 80048; 80061; 82728; 84443; 84460; 85025

== ENCOUNTER 2024-03-22 08:59 | Outpatient (CLI) | payer MEDICARE, BC, SELFPAY | END 2024-03-22 09:00 | disposition home or self-care (01) | PROVIDERS: PCP Family Medicine; Visit Provider Family Medicine | DX: E03.9 Hypothyroidism, unspecified (principal); I10 Essential (primary) hypertension | CPT/HCPCS: 80048; 84443 ==

== ENCOUNTER 2024-09-19 07:47 | Outpatient (CLI) | payer MEDICARE, BC, SELFPAY | END 2024-09-19 07:48 | disposition home or self-care (01) | PROVIDERS: PCP Family Medicine; Visit Provider Family Medicine | DX: E78.2 Mixed hyperlipidemia (principal); E11.65 Type 2 diabetes mellitus with hyperglycemia; Z79.4 Long term (current) use of insulin | CPT/HCPCS: 80061; 84460 ==

== ENCOUNTER 2024-12-26 09:29 | Outpatient (CLI) | payer MEDICARE, BC, SELFPAY | END 2024-12-26 09:30 | disposition home or self-care (01) | PROVIDERS: PCP Family Medicine; Visit Provider Family Medicine | DX: E11.9 Type 2 diabetes mellitus without complications (principal); Z79.4 Long term (current) use of insulin; E78.2 Mixed hyperlipidemia | CPT/HCPCS: 80048; 82043; 82570 ==